=== PATIENT | male | born 1965 | race Caucasian/White ===

== ENCOUNTER 2023-02-21 10:54 | Emergency (ER) | payer BC ==
[~2023-02-21] VITALS: Ht 172.7 cm; Wt 88.5 kg
[2023-02-21 11:20] LABS: BASOPHILS ABSOLUTE AUTO 0.04 K/mm3 (0.00-0.23); BASOPHILS PERCENT AUTO 1 % (0-2); EOSINOPHILS ABSOLUTE AUTO 0.09 K/mm3 (0.00-0.68); EOSINOPHILS PERCENT AUTO 1 % (0-6); Hematocrit 49.4 % (37.0-53.0); Hemoglobin 17.2 g/dL (13.5-17.5); IMMATURE GRAN ABSOLUTE AUTO 0.03 K/mm3 (0.00-0.10); IMMATURE GRAN PERCENT AUTO 0 % (0-1); LYMPHOCYTES ABSOLUTE AUTO 1.74 K/mm3 (0.84-5.20); LYMPHOCYTES PERCENT AUTO 26 % (21-46); MONOCYTES ABSOLUTE AUTO 0.61 K/mm3 (0.16-1.47); MONOCYTES PERCENT AUTO 9 % (4-13); Mean Corpuscular HGB 28.8 pg (26.0-34.0); Mean Corpuscular HGB Conc 34.8 g/dL (31.5-36.5); Mean Corpuscular Volume 83 fL (80-100); Mean Platelet Volume 9.9 fL (9.1-12.4); NEUTROPHILS ABSOLUTE AUTO 4.19 K/mm3 (1.96-9.15); NEUTROPHILS PERCENT AUTO 63 % (41-73); Platelet Count 165 K/mm3 (150-400); RDW Coefficient Variation 12.7 % (11.7-14.2); RDW Standard Deviation 38.1 fL (35.1-46.3); Red Blood Cell Count 5.98 M/mm3 (4.30-5.90)
[2023-02-21 11:42] LABS: Albumin, Blood 3.6 g/dL (3.4-5.0); Albumin/Globulin Ratio 1.1 (0.8-1.8); Bilirubin, Total 1.5 mg/dL (0.1-1.0); Bun/Creatinine Ratio 14.5 (12.0-20.0); Calcium, Blood 8.5 mg/dL (8.5-10.1); Creatinine, Blood 0.83 mg/dL (0.60-1.20); Globulin, Blood 3.3 g/dL (2.2-4.0); Potassium, Blood 3.6 mmol/L (3.5-5.5); Total Protein, Blood 6.9 g/dL (6.4-8.2)
[2023-02-21 13:50] VITALS: BP 132/94
== END 2023-02-21 14:41 | disposition home or self-care (01) ==
LOC: ER 10:54
PROVIDERS: Physician Assistant
DX: R07.89 Other chest pain (principal); I25.2 Old myocardial infarction; I48.91 Unspecified atrial fibrillation; K21.9 Gastro-esophageal reflux disease without esophagitis; E78.5 Hyperlipidemia, unspecified; Z79.899 Other long term (current) drug therapy; Z79.01 Long term (current) use of anticoagulants
CPT/HCPCS: 71046; 80053; 83690; 83880; 84484; 85025; 93005; 93010; 99285-25; A9270

== ENCOUNTER 2023-12-30 10:30 | Day surgery (SDC) | payer BC ==
[~2023-12-30] VITALS: Ht 170.2 cm; Wt 98.4 kg
[2023-12-30] MEDS ORDERED: Lidocaine 1%-Epineph 1:100000 20 ML MDV ONE (10:39)
[2023-12-30] MEDS ORDERED: Lactated Ringer's 1,000 ML IV ONE ×2 (10:40→11:08)
[2023-12-30] MEDS ORDERED: ELIQUIS5 M3 PO (10:47)
[2023-12-30] MEDS ORDERED: METO25ER (10:49)
[2023-12-30] MEDS ORDERED: Crestor40 MG PO (10:51)
[2023-12-30] MEDS ORDERED: LOSA25 PO (10:51)
[2023-12-30] MEDS ORDERED: OMEP20ER PO (10:51)
[2023-12-30] MEDS ORDERED: SILD25T PO (10:52)
[2023-12-30] MEDS ORDERED: NS 50 ML IV ONE (11:08)
[2023-12-30] MEDS ORDERED: CeFAZolin Sodium 2,000 MG VIAL ONE (11:08)
--- NOTE | 2023-12-30 12:17 | NUR ---
12/30/[address] AT BEDSIDE FOR NERVE/WRIST BLOCK. PT TOLERATED PROCEDURE WELL. T/O DONE AT 1157 START TIME 1159 END PROCEDURE TIME 1201
--- NOTE | 2023-12-30 14:02 | NUR ---
12/30/23 1402 Joao Santiago PT INSTRUCTED TO MONITOR B/P AT HOME AND FOLLOW UP WITH PCP, IF NEEDED.
[2023-12-30 14:04] VITALS: BP 128/92
== END 2023-12-30 13:15 | disposition home or self-care (01) ==
LOC: ORSCSDS 10:30
PROVIDERS: Orthopaedic Surgery
PROC: 01N50ZZ Release Median Nerve, Open Approach (ICD-10-PCS; principal; 2023-12-30 12:00)
DX: G56.03 Carpal tunnel syndrome, bilateral upper limbs (principal); I48.91 Unspecified atrial fibrillation; K21.9 Gastro-esophageal reflux disease without esophagitis; I25.2 Old myocardial infarction; Z79.01 Long term (current) use of anticoagulants; Z79.899 Other long term (current) drug therapy; Z87.891 Personal history of nicotine dependence
CPT/HCPCS: J0690; J7120

== ENCOUNTER 2024-03-02 10:59 | Day surgery (SDC) | payer BC ==
[~2024-03-02] VITALS: Ht 170.2 cm; Wt 99.1 kg
[~2024-03-02 10:59] MED LIST: Crestor40 MG PO; ELIQUIS5 M3 PO; LOSA25 PO; Lactated Ringer's 1,000 ML IV ONE; METO25ER; OMEP20ER PO; SILD25T PO; Sodium Bicarb 8.4% 1 MEQ/ML 50 ML Vial ONE
== END 2024-03-02 11:39 | disposition home or self-care (01) ==
LOC: ORSCSDS 10:59
DX: G56.02 Carpal tunnel syndrome, left upper limb (principal); Z53.9 Procedure and treatment not carried out, unspecified reason
CPT/HCPCS: J7120

== ENCOUNTER 2024-03-16 10:38 | Day surgery (SDC) | payer BC ==
[~2024-03-16] VITALS: Ht 170.2 cm; Wt 100.2 kg
[~2024-03-16 10:38] MED LIST changes: -Lactated Ringer's 1,000 ML IV ONE; +Lidocaine 1%-Epineph 1:100000 20 ML MDV ONE; +NS 500 ML IV ONE; -Sodium Bicarb 8.4% 1 MEQ/ML 50 ML Vial ONE
[2024-03-16] MEDS ORDERED: CeFAZolin Sodium 2,000 MG VIAL ONE (10:43)
[2024-03-16] MEDS ORDERED: NS 50 ML IV ONE (10:43)
[2024-03-16] MEDS ORDERED: NS 500 ML IV ONE (11:15)
--- NOTE | 2024-03-16 12:00 | NUR ---
03/16/24 1200 MIKE VILLELA TIME OUT DONE PRIOR TO LOCAL INJECTION AT [facility]. END NOTE RDS
[2024-03-16 12:49] VITALS: BP 135/91
== END 2024-03-16 13:13 | disposition home or self-care (01) ==
LOC: ORSCSDS 10:38
PROVIDERS: Orthopaedic Surgery
PROC: 01N50ZZ Release Median Nerve, Open Approach (ICD-10-PCS; principal; 2024-03-16 12:15)
DX: G56.02 Carpal tunnel syndrome, left upper limb (principal); I48.91 Unspecified atrial fibrillation; K21.9 Gastro-esophageal reflux disease without esophagitis; Z87.891 Personal history of nicotine dependence; Z79.01 Long term (current) use of anticoagulants; Z79.899 Other long term (current) drug therapy
CPT/HCPCS: J0690; J7040